=== PATIENT | male | born 1955 | race African-American/Black ===

== ENCOUNTER 2021-02-15 15:00 | Inpatient (IN) | payer MEDICARE, OTHER ==
[2021-02-15 15:36] LABS: #Lymphocytes 1.2 thou/uL (1.20-3.40); #Monocytes 1.7 thou/uL (0.11-0.59); #Neutrophils 11.2 thou/uL (1.40-6.50); %Basophils 0.1 % (0.0-1.0); %Eosinophils 0.3 % (0.0-10.0); %Lymphocytes 8.2 % (21.0-51.0); %Monocytes 12.2 % (0.0-10.0); %Neutrophils 79.2 % (42.0-75.0); Hemoglobin 15.7 g/dL (14.0-18.0); Mean Corpuscular HGB CONC 32.4 g/dL (32.0-36.0); Mean Platelet Volume 8.1 fL (7.4-10.4); Platelet Count 170 thou/uL (130-400); RBC Distribution Width 16.1 % (11.5-14.5); Red Blood Cell (RBC) Count 4.37 mill/uL (4.70-6.10); White Blood Cell (WBC) Count 14.1 thou/uL (4.8-10.8)
[2021-02-15 15:46] LABS: INR-International Normal Ratio 1.3; PTT 26.3 sec (22.9-36.1); Prothrombin Time 16.5 sec (12.0-14.7)
[2021-02-15 15:53] LABS: ALT (SGPT) 10 U/L (8-55); AST (SGOT) 24 U/L (5-34); Albumin 4.3 g/dL (3.4-4.8); Alkaline Phosphatase 105 U/L (40-110); Anion Gap 20 mmol/L (10-20); BUN (Urea Nitrogen) 85 mg/dL (8.4-25.7); Bilirubin, Total 1.2 mg/dL (0.2-1.2); CK (CPK) 673 U/L (30-200); Calc. Creatinine Clearance 0 mL/min (70-130); Calcium 9.9 mg/dL (7.8-10.44); Carbon Dioxide 25 mmol/L (23-31); Chloride 106 mmol/L (98-107); Globulin 3.7 g/dL (2.4-3.5); Glucose 113 mg/dL (80-115); Potassium 3.8 mmol/L (3.5-5.1); Sodium 147 mmol/L (136-145)
[2021-02-15 15:55] LABS: MDiff Complete? YES; Macrocytosis SLIGHT = 6-15 cells (100X) (0-5/hpf); Platelet Morphology Comment Appears Adequate; Target Cells SLIGHT = 2-5 cells (100X) (0-1/hpf)
[2021-02-15 16:27] LABS: Bacteria/HPF None Seen HPF (None Seen); Bilirubin Negative (Negative); Blood, Urine Trace (Negative); Clarity Clear (Clear); Glucose, Urine (Dipstick) Normal (Negative); Ketone, Urine Negative (Negative); Leukocyte Negative Leu/uL (Negative); Nitrite Negative (Negative); Protein, Urine (Dipstick) 200 mg/dL (Neg-Trace); RBC/HPF 0-3 HPF (0-3); Specific Gravity, Urine 1.026 (1.002-1.036); Squamous Epithelial 0-3 HPF (0-3); Urobilinogen Normal mg/dL (Less than 2); WBC/HPF 0-3 HPF (0-3); pH, Urine 5.5 (5.0-9.0)
[2021-02-15] MEDS ORDERED: Aspirin 300 MG Suppository ONE (16:45)
[2021-02-15] MEDS ORDERED: hydrALAZINE 20 MG/ML VIAL SLOW IVP PRN (21:27)
[2021-02-15 23:10] LABS: Amphetamine Not Detected (NotDetected); Barbiturates Screen Not Detected (NotDetected); Benzodiazepine Screen Not Detected (NotDetected); Cocaine Metabolite Screen Not Detected (NotDetected); Methadone Not Detected (NotDetected); Methamphetamine Not Detected (NotDetected); Opiate Screen Not Detected (NotDetected); Oxycodone Screen Not Detected (NotDetected); Phencyclidine (PCP) Not Detected (NotDetected); THC/Cannabinoid Screen Detected (NotDetected); Tricyclic Screen Not Detected (NotDetected)
[2021-02-16] MEDS: Sodium Chloride 0.9% 1,000 ML IV SCH ×4 (00:55→21:59)
[2021-02-16 05:57] LABS: Cardiac Risk 3.1 (Less than 4.5)
[2021-02-16 08:58] LABS: SARS-CoV-2 PCR by NAA Not Detected (NotDetected)
[2021-02-16] MEDS: Aspirin 300 MG Suppository PR SCH (11:33)
[2021-02-16] MEDS: Atorvastatin Calcium 40 MG TAB PO SCH (23:10)
[2021-02-17 05:57] LABS: #Eosinphils 0.1 thou/uL (0.0-0.7); #Lymphocytes 0.8 thou/uL (1.20-3.40); #Monocytes 1.3 thou/uL (0.11-0.59); #Neutrophils 10.8 thou/uL (1.40-6.50); %Basophils 0.1 % (0.0-1.0); %Eosinophils 0.5 % (0.0-10.0); %Lymphocytes 6.3 % (21.0-51.0); %Monocytes 9.9 % (0.0-10.0); %Neutrophils 83.2 % (42.0-75.0); Hemoglobin 13.7 g/dL (14.0-18.0); Mean Corpuscular HGB CONC 31.1 g/dL (32.0-36.0); Mean Corpuscular Hemoglobin 34.5 pg (27.0-31.0); Mean Platelet Volume 8.4 fL (7.4-10.4); Platelet Count 193 thou/uL (130-400); RBC Distribution Width 16.2 % (11.5-14.5); Red Blood Cell (RBC) Count 3.96 mill/uL (4.70-6.10)
[2021-02-17 06:22] LABS: Anion Gap 12 mmol/L (10-20); BUN (Urea Nitrogen) 48 mg/dL (8.4-25.7); Calc. Creatinine Clearance 38 mL/min (70-130); Calcium 9.1 mg/dL (7.8-10.44); Carbon Dioxide 29 mmol/L (23-31); Chloride 115 mmol/L (98-107); Glucose 92 mg/dL (80-115); Potassium 3.2 mmol/L (3.5-5.1); Sodium 153 mmol/L (136-145)
[2021-02-17] MEDS: Aspirin 300 MG Suppository PR SCH (09:34)
[2021-02-17] MEDS: Dextrose 5% in Water 1,000 ML IV SCH ×2 (09:35→20:30)
[2021-02-17] MEDS: Atorvastatin Calcium 40 MG TAB PO SCH (20:27)
[2021-02-18] MEDS: Dextrose 5% in Water 1,000 ML IV SCH (18:36)
[2021-02-18] MEDS: Atorvastatin Calcium 40 MG TAB PO SCH (22:00)
[2021-02-19 06:19] LABS: #Eosinphils 0.2 thou/uL (0.0-0.7); #Lymphocytes 1.7 thou/uL (1.20-3.40); #Monocytes 1.8 thou/uL (0.11-0.59); #Neutrophils 12.6 thou/uL (1.40-6.50); %Basophils 0.2 % (0.0-1.0); %Lymphocytes 10.2 % (21.0-51.0); %Monocytes 11.3 % (0.0-10.0); %Neutrophils 77.3 % (42.0-75.0); Hemoglobin 13.3 g/dL (14.0-18.0); Mean Corpuscular HGB CONC 32.1 g/dL (32.0-36.0); Mean Corpuscular Hemoglobin 35.2 pg (27.0-31.0); Mean Platelet Volume 8.8 fL (7.4-10.4); Platelet Count 196 thou/uL (130-400); RBC Distribution Width 16.1 % (11.5-14.5); Red Blood Cell (RBC) Count 3.77 mill/uL (4.70-6.10); White Blood Cell (WBC) Count 16.3 thou/uL (4.8-10.8)
[2021-02-19] MEDS: Dextrose 5% in Water 1,000 ML IV SCH ×2 (06:33→08:46)
[2021-02-19 06:37] LABS: Anion Gap 12 mmol/L (10-20); BUN (Urea Nitrogen) 29 mg/dL (8.4-25.7); Calc. Creatinine Clearance 43 mL/min (70-130); Carbon Dioxide 26 mmol/L (23-31); Chloride 109 mmol/L (98-107); Potassium 3.3 mmol/L (3.5-5.1); Sodium 144 mmol/L (136-145)
[2021-02-19 06:38] LABS: Calcium 8.9 mg/dL (7.8-10.44); Glucose 113 mg/dL (80-115)
[2021-02-19] MEDS: Atorvastatin Calcium 40 MG TAB PO SCH (21:37)
[2021-02-20] MEDS: Dextrose 5% in Water 1,000 ML IV SCH ×2 (03:47→18:19)
[2021-02-20 06:55] LABS: #Eosinphils 0.1 thou/uL (0.0-0.7); #Lymphocytes 1.1 thou/uL (1.20-3.40); #Monocytes 1.3 thou/uL (0.11-0.59); #Neutrophils 14.2 thou/uL (1.40-6.50); %Eosinophils 0.6 % (0.0-10.0); %Lymphocytes 6.8 % (21.0-51.0); %Monocytes 7.8 % (0.0-10.0); %Neutrophils 84.7 % (42.0-75.0); Hemoglobin 12.6 g/dL (14.0-18.0); Mean Corpuscular HGB CONC 32.5 g/dL (32.0-36.0); Mean Corpuscular Hemoglobin 34.6 pg (27.0-31.0); Mean Platelet Volume 8.7 fL (7.4-10.4); Platelet Count 235 thou/uL (130-400); RBC Distribution Width 16.2 % (11.5-14.5); Red Blood Cell (RBC) Count 3.64 mill/uL (4.70-6.10); White Blood Cell (WBC) Count 16.7 thou/uL (4.8-10.8)
[2021-02-20 07:13] LABS: Anion Gap 12 mmol/L (10-20); BUN (Urea Nitrogen) 28 mg/dL (8.4-25.7); Calc. Creatinine Clearance 39 mL/min (70-130); Calcium 8.8 mg/dL (7.8-10.44); Carbon Dioxide 27 mmol/L (23-31); Chloride 107 mmol/L (98-107); Glucose 112 mg/dL (80-115); Potassium 3.1 mmol/L (3.5-5.1); Sodium 143 mmol/L (136-145)
[2021-02-20] MEDS ORDERED: PROPOFOL 200 MG/20 ML VIAL ONE (13:41)
[2021-02-20] MEDS ORDERED: PHENYLEPHRINE-NS 100 MCG/ML 10 ML SYRINGE ONE ×2 (13:49→14:08)
[2021-02-20] MEDS: Atorvastatin Calcium 40 MG TAB PO SCH (21:58)
[2021-02-20] MEDS: Acetaminophen 325 MG TAB PO PRN (22:01)
[2021-02-21] MEDS ORDERED: Sodium Chloride 0.9% 500 ML IV SCH (04:45)
[2021-02-21] MEDS ORDERED: Aspirin 300 MG Suppository PR SCH (09:00)
[2021-02-21 09:42] LABS: Hemoglobin 12.9 g/dL (14.0-18.0); Mean Corpuscular HGB CONC 32.1 g/dL (32.0-36.0); Mean Corpuscular Hemoglobin 34.5 pg (27.0-31.0); RBC Distribution Width 16.7 % (11.5-14.5); Red Blood Cell (RBC) Count 3.74 mill/uL (4.70-6.10)
[2021-02-21 09:45] LABS: Anion Gap 17 mmol/L (10-20); BUN (Urea Nitrogen) 35 mg/dL (8.4-25.7); Calc. Creatinine Clearance 26 mL/min (70-130); Calcium 8.2 mg/dL (7.8-10.44); Carbon Dioxide 21 mmol/L (23-31); Chloride 105 mmol/L (98-107); Glucose 107 mg/dL (80-115); Potassium 3.1 mmol/L (3.5-5.1); Sodium 140 mmol/L (136-145)
[2021-02-21] MEDS: Acetaminophen 325 MG TAB PO PRN (09:53)
[2021-02-21] MEDS: Pantoprazole 40 MG GRANULES PACKET PER TUBE SCH (09:53)
[2021-02-21] MEDS ORDERED: Aspirin 325 MG TAB PER TUBE SCH (10:15)
[2021-02-21] MEDS ORDERED: Potassium Bicarbonate/Cit Ac 20 MEQ TAB PER TUBE SCH (12:00)
[2021-02-21 12:21] LABS: Anisocytosis SLIGHT = 6-15 cells (100X) (0-5/hpf); Band 2 % (5-11); Lymphocytes 7 % (21-51); MDiff Complete? YES; Mean Platelet Volume 8.8 fL (7.4-10.4); Monocytes 4 % (0-10); Neutrophil 87 % (42-75); Platelet Count 224 thou/uL (130-400); Platelet Morphology Comment Appears Adequate; Vacuoles SLIGHT; White Blood Cell (WBC) Count 21.5 thou/uL (4.8-10.8)
[2021-02-21] MEDS: cefTRIAXone\\ROCEPHIN 1 GM in Sodium Chloride 0.9% 100 ML IVPB SCH (12:42)
[2021-02-21] MEDS: Azithromycin 500 MG in Sodium Chloride 0.9% 250 ML 250 ML IVPB SCH (13:35)
[2021-02-21] MEDS: NS 0.9% w/ 20 MEQ KCL 1,000 ML/1,000 ML BAG IV SCH (15:04)
[2021-02-21] MEDS: Potassium Bicarbonate/Cit Ac 20 MEQ TAB PER TUBE SCH (18:15)
[2021-02-21] MEDS: Atorvastatin Calcium 40 MG TAB PO SCH (20:09)
[2021-02-22] MEDS: NS 0.9% w/ 20 MEQ KCL 1,000 ML/1,000 ML BAG IV SCH ×3 (04:39→21:59)
[2021-02-22] MEDS ORDERED: LACTINEX 1 TAB PER TUBE SCH (05:00)
[2021-02-22] MEDS: Aspirin 325 MG TAB PER TUBE SCH (08:23)
[2021-02-22] MEDS: Potassium Bicarbonate/Cit Ac 20 MEQ TAB PER TUBE SCH ×2 (08:24→17:48)
[2021-02-22] MEDS: Pantoprazole 40 MG GRANULES PACKET PER TUBE SCH (08:24)
[2021-02-22] MEDS: cefTRIAXone\\ROCEPHIN 1 GM in Sodium Chloride 0.9% 100 ML IVPB SCH (11:56)
[2021-02-22] MEDS: Azithromycin 500 MG in Sodium Chloride 0.9% 250 ML 250 ML IVPB SCH (13:43)
[2021-02-22] MEDS: Acetaminophen 325 MG TAB PO PRN (21:24)
[2021-02-22] MEDS: Atorvastatin Calcium 40 MG TAB PO SCH (21:24)
[2021-02-22] MEDS: LACTINEX 1 TAB PER TUBE SCH (21:24)
[2021-02-23] MEDS: LACTINEX 1 TAB PER TUBE SCH ×2 (12:29→23:02)
[2021-02-23] MEDS: Aspirin 325 MG TAB PER TUBE SCH (12:30)
[2021-02-23] MEDS: Pantoprazole 40 MG GRANULES PACKET PER TUBE SCH (12:30)
[2021-02-23] MEDS: Potassium Bicarbonate/Cit Ac 20 MEQ TAB PER TUBE SCH ×2 (12:30→17:24)
[2021-02-23] MEDS: Azithromycin 500 MG in Sodium Chloride 0.9% 250 ML 250 ML IVPB SCH (12:31)
[2021-02-23] MEDS: cefTRIAXone\\ROCEPHIN 1 GM in Sodium Chloride 0.9% 100 ML IVPB SCH (12:31)
[2021-02-23] MEDS: Metoclopramide HCl 10 MG/2 ML VIAL IVP SCH (12:50)
[2021-02-23 16:03] LABS: #Basophils 0.1 thou/uL (0.0-0.2); #Eosinphils 0.1 thou/uL (0.0-0.7); #Lymphocytes 1.4 thou/uL (1.20-3.40); #Monocytes 0.8 thou/uL (0.11-0.59); #Neutrophils 13.4 thou/uL (1.40-6.50); %Basophils 0.3 % (0.0-1.0); %Eosinophils 0.9 % (0.0-10.0); %Lymphocytes 8.9 % (21.0-51.0); %Monocytes 5.3 % (0.0-10.0); %Neutrophils 84.6 % (42.0-75.0); Hemoglobin 12.3 g/dL (14.0-18.0); Mean Corpuscular HGB CONC 31.7 g/dL (32.0-36.0); Mean Corpuscular Hemoglobin 34.2 pg (27.0-31.0); Mean Platelet Volume 8.8 fL (7.4-10.4); Platelet Count 255 thou/uL (130-400); RBC Distribution Width 16.2 % (11.5-14.5); White Blood Cell (WBC) Count 15.8 thou/uL (4.8-10.8)
[2021-02-23 16:23] LABS: Anion Gap 14 mmol/L (10-20); BUN (Urea Nitrogen) 18 mg/dL (8.4-25.7); Calc. Creatinine Clearance 45 mL/min (70-130); Calcium 8.3 mg/dL (7.8-10.44); Carbon Dioxide 22 mmol/L (23-31); Chloride 111 mmol/L (98-107); Glucose 97 mg/dL (80-115); Potassium 4.6 mmol/L (3.5-5.1); Sodium 142 mmol/L (136-145)
[2021-02-23] MEDS ORDERED: Loperamide HCl 1 MG/7.5 ML UDCUP PER TUBE SCH (16:45)
[2021-02-23] MEDS: NS 0.9% w/ 20 MEQ KCL 1,000 ML/1,000 ML BAG IV SCH (17:22)
[2021-02-23] MEDS: levETIRAcetam 500 mg/5 ml Oral Solution PER TUBE SCH (23:01)
[2021-02-23] MEDS: Loperamide HCl 1 MG/7.5 ML UDCUP PER TUBE PRN (23:04)
[2021-02-23] MEDS: Atorvastatin Calcium 40 MG TAB PO SCH (23:04)
[2021-02-24] MEDS: Metoclopramide HCl 10 MG/2 ML VIAL IVP SCH ×4 (02:41→21:42)
[2021-02-24 06:02] LABS: #Eosinphils 0.1 thou/uL (0.0-0.7); #Lymphocytes 1.1 thou/uL (1.20-3.40); #Monocytes 0.6 thou/uL (0.11-0.59); #Neutrophils 11.4 thou/uL (1.40-6.50); %Basophils 0.2 % (0.0-1.0); %Eosinophils 0.7 % (0.0-10.0); %Lymphocytes 8.3 % (21.0-51.0); %Monocytes 4.7 % (0.0-10.0); %Neutrophils 86.2 % (42.0-75.0); Hemoglobin 11.6 g/dL (14.0-18.0); Mean Corpuscular HGB CONC 33.8 g/dL (32.0-36.0); Mean Corpuscular Hemoglobin 36.3 pg (27.0-31.0); Platelet Count 287 thou/uL (130-400); RBC Distribution Width 16.4 % (11.5-14.5); White Blood Cell (WBC) Count 13.2 thou/uL (4.8-10.8)
[2021-02-24 06:24] LABS: Anion Gap 12 mmol/L (10-20); BUN (Urea Nitrogen) 16 mg/dL (8.4-25.7); Calc. Creatinine Clearance 49 mL/min (70-130); Calcium 8.5 mg/dL (7.8-10.44); Carbon Dioxide 25 mmol/L (23-31); Chloride 110 mmol/L (98-107); Glucose 108 mg/dL (80-115); Potassium 4.5 mmol/L (3.5-5.1); Sodium 142 mmol/L (136-145)
[2021-02-24] MEDS: Loperamide HCl 1 MG/7.5 ML UDCUP PER TUBE PRN ×3 (06:28→23:00)
[2021-02-24] MEDS: Potassium Bicarbonate/Cit Ac 20 MEQ TAB PER TUBE SCH (09:46)
[2021-02-24] MEDS: Pantoprazole 40 MG GRANULES PACKET PER TUBE SCH (09:47)
[2021-02-24] MEDS: Aspirin 325 MG TAB PER TUBE SCH (09:48)
[2021-02-24] MEDS: levETIRAcetam 500 mg/5 ml Oral Solution PER TUBE SCH ×2 (09:49→21:42)
[2021-02-24] MEDS: Amlodipine 10 MG TAB PER TUBE SCH (09:54)
[2021-02-24] MEDS: LACTINEX 1 TAB PER TUBE SCH ×2 (10:11→21:42)
[2021-02-24] MEDS: Sodium Chloride 0.9% 1,000 ML IV SCH (12:10)
[2021-02-24] MEDS: cefTRIAXone\\ROCEPHIN 1 GM in Sodium Chloride 0.9% 100 ML IVPB SCH (12:11)
[2021-02-24] MEDS: NS 0.9% w/ 20 MEQ KCL 1,000 ML/1,000 ML BAG IV SCH (12:35)
[2021-02-24 12:38] LABS: SARS-CoV-2 PCR by NAA Not Detected (NotDetected)
[2021-02-24] MEDS: Azithromycin 200 MG/5 ML Oral Suspension PER TUBE SCH (13:22)
[2021-02-24] MEDS: Atorvastatin Calcium 40 MG TAB PO SCH (21:42)
[2021-02-25] MEDS: Sodium Chloride 0.9% 1,000 ML IV SCH ×2 (02:42→14:30)
[2021-02-25] MEDS: Metoclopramide HCl 10 MG/2 ML VIAL IVP SCH ×3 (05:40→21:58)
[2021-02-25 05:54] LABS: #Eosinphils 0.4 thou/uL (0.0-0.7); #Lymphocytes 1.4 thou/uL (1.20-3.40); #Monocytes 0.7 thou/uL (0.11-0.59); #Neutrophils 10.3 thou/uL (1.40-6.50); %Basophils 0.4 % (0.0-1.0); %Eosinophils 2.8 % (0.0-10.0); %Lymphocytes 10.6 % (21.0-51.0); %Monocytes 5.7 % (0.0-10.0); %Neutrophils 80.6 % (42.0-75.0); Hemoglobin 10.4 g/dL (14.0-18.0); Mean Corpuscular HGB CONC 33.7 g/dL (32.0-36.0); Mean Corpuscular Hemoglobin 36.1 pg (27.0-31.0); Mean Platelet Volume 8.7 fL (7.4-10.4); Platelet Count 272 thou/uL (130-400); Red Blood Cell (RBC) Count 2.89 mill/uL (4.70-6.10); White Blood Cell (WBC) Count 12.8 thou/uL (4.8-10.8)
[2021-02-25 06:13] LABS: Anion Gap 9 mmol/L (10-20); BUN (Urea Nitrogen) 16 mg/dL (8.4-25.7); Calc. Creatinine Clearance 52 mL/min (70-130); Carbon Dioxide 23 mmol/L (23-31); Chloride 109 mmol/L (98-107); Glucose 99 mg/dL (80-115); Potassium 4.1 mmol/L (3.5-5.1); Sodium 137 mmol/L (136-145)
[2021-02-25] MEDS: Amlodipine 10 MG TAB PER TUBE SCH (08:56)
[2021-02-25] MEDS: Pantoprazole 40 MG GRANULES PACKET PER TUBE SCH (08:56)
[2021-02-25] MEDS: levETIRAcetam 500 mg/5 ml Oral Solution PER TUBE SCH ×2 (08:57→21:57)
[2021-02-25] MEDS: Aspirin 325 MG TAB PER TUBE SCH (08:57)
[2021-02-25] MEDS: LACTINEX 1 TAB PER TUBE SCH ×2 (08:57→21:56)
[2021-02-25] MEDS: cefTRIAXone\\ROCEPHIN 1 GM in Sodium Chloride 0.9% 100 ML IVPB SCH (12:04)
[2021-02-25] MEDS: Azithromycin 200 MG/5 ML Oral Suspension PER TUBE SCH (12:09)
[2021-02-25] MEDS: Acetaminophen 325 MG TAB PO PRN (12:14)
[2021-02-25 13:08] VITALS: BMI 24.9
[2021-02-25] MEDS: Atorvastatin Calcium 40 MG TAB PO SCH (21:57)
[2021-02-25] MEDS: Loperamide HCl 1 MG/7.5 ML UDCUP PER TUBE PRN (21:58)
[2021-02-26] MEDS: Acetaminophen 325 MG TAB PO PRN (00:11)
[2021-02-26] MEDS: Sodium Chloride 0.9% 1,000 ML IV SCH (04:15)
[2021-02-26] MEDS: hydrALAZINE 20 MG/ML VIAL SLOW IVP PRN (04:47)
[2021-02-26] MEDS: Metoclopramide HCl 10 MG/2 ML VIAL IVP SCH ×3 (05:40→20:20)
[2021-02-26 05:46] LABS: #Basophils 0.1 thou/uL (0.0-0.2); #Eosinphils 0.3 thou/uL (0.0-0.7); #Lymphocytes 1.3 thou/uL (1.20-3.40); #Monocytes 0.5 thou/uL (0.11-0.59); #Neutrophils 12.9 thou/uL (1.40-6.50); %Basophils 0.5 % (0.0-1.0); %Eosinophils 2.3 % (0.0-10.0); %Lymphocytes 8.8 % (21.0-51.0); %Monocytes 3.1 % (0.0-10.0); %Neutrophils 85.3 % (42.0-75.0); Hemoglobin 11.4 g/dL (14.0-18.0); Mean Corpuscular HGB CONC 32.8 g/dL (32.0-36.0); Mean Corpuscular Hemoglobin 34.7 pg (27.0-31.0); Mean Platelet Volume 8.2 fL (7.4-10.4); Platelet Count 317 thou/uL (130-400); Red Blood Cell (RBC) Count 3.29 mill/uL (4.70-6.10); White Blood Cell (WBC) Count 15.2 thou/uL (4.8-10.8)
[2021-02-26 06:03] LABS: Anion Gap 12 mmol/L (10-20); BUN (Urea Nitrogen) 16 mg/dL (8.4-25.7); Calc. Creatinine Clearance 52 mL/min (70-130); Calcium 8.2 mg/dL (7.8-10.44); Carbon Dioxide 25 mmol/L (23-31); Chloride 103 mmol/L (98-107); Glucose 122 mg/dL (80-115); Potassium 4.1 mmol/L (3.5-5.1); Sodium 136 mmol/L (136-145)
[2021-02-26] MEDS: levETIRAcetam 500 mg/5 ml Oral Solution PER TUBE SCH ×2 (09:12→20:18)
[2021-02-26] MEDS: Pantoprazole 40 MG GRANULES PACKET PER TUBE SCH (09:13)
[2021-02-26] MEDS: LACTINEX 1 TAB PER TUBE SCH ×2 (09:13→20:20)
[2021-02-26] MEDS: Aspirin 325 MG TAB PER TUBE SCH (09:13)
[2021-02-26] MEDS: Amlodipine 10 MG TAB PER TUBE SCH (09:13)
[2021-02-26] MEDS: cefTRIAXone\\ROCEPHIN 1 GM in Sodium Chloride 0.9% 100 ML IVPB SCH (13:18)
[2021-02-26] MEDS: Azithromycin 200 MG/5 ML Oral Suspension PER TUBE SCH (13:19)
[2021-02-26] MEDS: Atorvastatin Calcium 40 MG TAB PO SCH (20:21)
[2021-02-27] MEDS: hydrALAZINE 20 MG/ML VIAL SLOW IVP PRN (04:15)
[2021-02-27] MEDS: Metoclopramide HCl 10 MG/2 ML VIAL IVP SCH ×3 (05:53→21:18)
[2021-02-27] MEDS: Acetaminophen 325 MG TAB PO PRN (10:08)
[2021-02-27] MEDS: Amlodipine 10 MG TAB PER TUBE SCH (10:09)
[2021-02-27] MEDS: levETIRAcetam 500 mg/5 ml Oral Solution PER TUBE SCH ×2 (10:09→20:50)
[2021-02-27] MEDS: Pantoprazole 40 MG GRANULES PACKET PER TUBE SCH (10:09)
[2021-02-27] MEDS: Aspirin 325 MG TAB PER TUBE SCH (10:10)
[2021-02-27] MEDS: LACTINEX 1 TAB PER TUBE SCH ×2 (10:22→20:50)
[2021-02-27] MEDS: cefTRIAXone\\ROCEPHIN 1 GM in Sodium Chloride 0.9% 100 ML IVPB SCH (11:51)
[2021-02-27] MEDS: Azithromycin 200 MG/5 ML Oral Suspension PER TUBE SCH (13:54)
[2021-02-27] MEDS: Atorvastatin Calcium 40 MG TAB PO SCH (20:50)
[2021-02-28] MEDS: Acetaminophen 325 MG TAB PO PRN (05:21)
[2021-02-28] MEDS: Metoclopramide HCl 10 MG/2 ML VIAL IVP SCH ×3 (05:22→22:10)
[2021-02-28] MEDS: Pantoprazole 40 MG GRANULES PACKET PER TUBE SCH (09:27)
[2021-02-28] MEDS: levETIRAcetam 500 mg/5 ml Oral Solution PER TUBE SCH ×2 (09:27→22:09)
[2021-02-28] MEDS: LACTINEX 1 TAB PER TUBE SCH ×2 (09:27→22:09)
[2021-02-28] MEDS: Aspirin 325 MG TAB PER TUBE SCH (09:27)
[2021-02-28] MEDS: Amlodipine 10 MG TAB PER TUBE SCH (09:27)
[2021-02-28] MEDS: cefTRIAXone\\ROCEPHIN 1 GM in Sodium Chloride 0.9% 100 ML IVPB SCH (11:29)
[2021-02-28] MEDS: Azithromycin 200 MG/5 ML Oral Suspension PER TUBE SCH (13:48)
[2021-02-28] MEDS: Atorvastatin Calcium 40 MG TAB PO SCH (22:09)
[2021-03-01 06:16] LABS: #Basophils 0.1 thou/uL (0.0-0.2); #Eosinphils 0.3 thou/uL (0.0-0.7); #Lymphocytes 1.5 thou/uL (1.20-3.40); #Monocytes 0.8 thou/uL (0.11-0.59); #Neutrophils 8.9 thou/uL (1.40-6.50); %Basophils 0.6 % (0.0-1.0); %Eosinophils 2.4 % (0.0-10.0); %Lymphocytes 12.8 % (21.0-51.0); %Neutrophils 77.2 % (42.0-75.0); Hemoglobin 10.4 g/dL (14.0-18.0); Mean Corpuscular HGB CONC 31.8 g/dL (32.0-36.0); Mean Corpuscular Hemoglobin 33.5 pg (27.0-31.0); Mean Platelet Volume 7.9 fL (7.4-10.4); Platelet Count 407 thou/uL (130-400); RBC Distribution Width 16.4 % (11.5-14.5); Red Blood Cell (RBC) Count 3.11 mill/uL (4.70-6.10); White Blood Cell (WBC) Count 11.5 thou/uL (4.8-10.8)
[2021-03-01] MEDS: Metoclopramide HCl 10 MG/2 ML VIAL IVP SCH (06:21)
[2021-03-01] MEDS: Acetaminophen 325 MG TAB PO PRN (06:26)
[2021-03-01 06:33] LABS: Anion Gap 13 mmol/L (10-20); BUN (Urea Nitrogen) 18 mg/dL (8.4-25.7); Calc. Creatinine Clearance 49 mL/min (70-130); Carbon Dioxide 27 mmol/L (23-31); Chloride 100 mmol/L (98-107); Potassium 4.4 mmol/L (3.5-5.1); Sodium 136 mmol/L (136-145)
[2021-03-01 06:34] LABS: Calcium 8.5 mg/dL (7.8-10.44); Glucose 95 mg/dL (80-115)
[2021-03-01] MEDS: Aspirin 325 MG TAB PER TUBE SCH (10:01)
[2021-03-01] MEDS: Pantoprazole 40 MG GRANULES PACKET PER TUBE SCH (10:01)
[2021-03-01] MEDS: levETIRAcetam 500 mg/5 ml Oral Solution PER TUBE SCH (10:01)
[2021-03-01] MEDS: LACTINEX 1 TAB PER TUBE SCH (10:01)
[2021-03-01] MEDS: Amlodipine 10 MG TAB PER TUBE SCH (10:02)
[2021-03-01] MEDS: cefTRIAXone\\ROCEPHIN 1 GM in Sodium Chloride 0.9% 100 ML IVPB SCH (11:30)
[2021-03-01 11:38] VITALS: BP 139/82
[2021-03-01 12:25] VITALS: TEMP 98.5
[2021-03-01] MEDS: Azithromycin 200 MG/5 ML Oral Suspension PER TUBE SCH (13:15)
== END 2021-03-01 13:33 | DRG 64 ==
LOC: ERS 15:00 → EDBD 15:00 → ERHOLD 16:58 → 3SE 21:44
PROVIDERS: ADMIT Student in an Organized Health Care Education/Training Program; ATTEND Internal Medicine
PROC: 0DH63UZ Insertion of Feeding Device into Stomach, Percutaneous Approach (ICD-10-PCS; principal; 2021-02-20)
DX: I63.511 Cerebral infarction due to unspecified occlusion or stenosis of right middle cerebral artery (principal); R29.727 NIHSS score 27; Z20.822 Contact with and (suspected) exposure to COVID-19; G93.6 Cerebral edema; I61.1 Nontraumatic intracerebral hemorrhage in hemisphere, cortical; J69.0 Pneumonitis due to inhalation of food and vomit; G93.41 Metabolic encephalopathy; G81.94 Hemiplegia, unspecified affecting left nondominant side; N17.9 Acute kidney failure, unspecified; M62.82 Rhabdomyolysis; E87.0 Hyperosmolality and hypernatremia; E44.0 Moderate protein-calorie malnutrition; R47.1 Dysarthria and anarthria; I65.21 Occlusion and stenosis of right carotid artery; R13.12 Dysphagia, oropharyngeal phase; K29.80 Duodenitis without bleeding; R47.01 Aphasia; E86.0 Dehydration; E86.9 Volume depletion, unspecified; F12.10 Cannabis abuse, uncomplicated; Z79.899 Other long term (current) drug therapy; Z68.24 Body mass index [BMI] 24.0-24.9, adult
CPT/HCPCS: 36415; 36416; 70450; 70547; 70551; 71045; 80048; 80053; 80061; 80306; 81003; 81015; 82550; 84484; 85025; 85610; 85730; 87045; 87046; 87324; 87427; 87449; 93005; 93306; 94760; 95712; 95819; 95957; J0360; J0456; J0696; J1953; J2704; J2765; J3480; J3490; J7030; J7050; J7070; U0003; U0005